=== PATIENT | female | born 1965 | race Caucasian/White ===

== ENCOUNTER 2023-04-30 20:30 | Emergency (ER) | payer OTHER ==
[~2023-04-30] VITALS: Ht 162.6 cm; Wt 63.5 kg
[2023-04-30 21:34] VITALS: BP 115/58; TEMP 98.9; O2SAT 100
[2023-04-30] MEDS ORDERED: AMOX500C2 PO (21:37)
[2023-04-30] MEDS ORDERED: AMOXICILLIN TRIHYDRATE 250 MG CAPSULE ONE (21:42)
[2023-04-30] MEDS: AMOXICILLIN TRIHYDRATE 500 MG CAPSULE PO ONE (21:46)
== END 2023-04-30 21:46 | disposition home or self-care (01) ==
LOC: ER 20:45
DX: H66.91 Otitis media, unspecified, right ear (principal)

== ENCOUNTER 2024-08-28 22:48 | Emergency (ER) | payer MEDICAID ==
[~2024-08-28] VITALS: Ht 160 cm; Wt 52.2 kg
[~2024-08-28 22:48] MED LIST: AMOX500C2 PO
[2024-08-28 23:24] VITALS: BP 111/64; TEMP 98.1; O2SAT 97
[2024-08-28] MEDS ORDERED: IBUPROFEN 600 MG TABLET ONE (23:42)
[2024-08-28] MEDS: IBUPROFEN 600 MG TABLET PO ONE (23:47)
== END 2024-08-29 01:38 | disposition left against medical advice (07) ==
LOC: ER 22:51
DX: S50.811A Abrasion of right forearm, initial encounter (principal); S80.211A Abrasion, right knee, initial encounter; Z88.1 Allergy status to other antibiotic agents; Z60.2 Problems related to living alone; Z79.899 Other long term (current) drug therapy; W19.XXXA Unspecified fall, initial encounter; Y93.89 Activity, other specified; Y92.89 Other specified places as the place of occurrence of the external cause; Y99.8 Other external cause status
CPT/HCPCS: 73090-TC

== ENCOUNTER 2025-02-04 11:39 | Emergency (ER) | payer MEDICAID ==
[~2025-02-04] VITALS: Ht 157.5 cm; Wt 59.9 kg
[2025-02-04 12:51] LABS: INR 1.04 (0.91-1.10)
[2025-02-04 12:52] LABS: PLATELET COUNT (AUTO) 242 K/uL (150-450); RED BLOOD CELL COUNT(AUTO) 4.29 MIL/uL (4.0-5.2); RED CELL DISTRIBUTION WIDTH 14.4 % (11.5-15.0); WHITE BLOOD COUNT (AUTO) 10.9 K/uL (4.3-11.0)
[2025-02-04] MEDS: IV NS 0.9% 1,000 ML BAG IV ONE (12:52)
[2025-02-04 12:55] LABS: ASPARTATE AMINOTRANSFERASE 17 U/L (15-37); CALCIUM, SERUM 8.9 mg/dL (8.5-10.1); CREATININE 0.8 mg/dL (0.6-1.3); SODIUM SERUM 144 mmol/L (136-145); TOTAL PROTEIN, SERUM 7.7 g/dL (6.4-8.2); UREA NITROGEN, BLOOD 16 mg/dL (7-18)
[2025-02-04 12:56] LABS: LACTIC ACID 0.6 mmol/L (0.4-2.0)
[2025-02-04] MEDS ORDERED: IOHEXOL-300 100 ML VIAL IV ONE (13:00)
[2025-02-04] MEDS ORDERED: IV NS 0.9% 250 ML IV ONE (13:01)
[2025-02-04] MEDS: CEFEPIME 1 GM in IV D5W 50 ML IV ONE (13:27)
[2025-02-04] MEDS: VANCOMYCIN 1 GM in IV D5W 250 ML IV ONE (13:50)
[2025-02-04] MEDS ORDERED: CEPH-570 PO (14:25)
[2025-02-04] MEDS ORDERED: DOXY100C2 PO (14:25)
[2025-02-04 15:06] LABS: APPEARANCE,URINE CLEAR (CLEAR); BLOOD, URINE 1+ Ery/uL (NEGATIVE); LEUKOCYTE ESTERASE ,URINE NEGATIVE (NEGATIVE); NITRITE, URINE NEGATIVE (NEGATIVE); UGLUCOSE NEGATIVE (NEGATIVE)
[2025-02-04 15:27] LABS: ADD URINE CULTURE YES; SQUAMOUS EPITHELIAL CELL,UR Few /HPF (None Seen)
[2025-02-04 15:42] VITALS: BP 121/79; TEMP 99.8; O2SAT 100
== END 2025-02-04 15:42 | disposition home or self-care (01) ==
LOC: ER 11:43
DX: K13.0 Diseases of lips (principal); R07.89 Other chest pain; Z88.1 Allergy status to other antibiotic agents
CPT/HCPCS: 99285; 96365; 70487; 71045; 96368; 93005; 84145; 85025; 80048; 87040 ×2; 83605; 80076; 81001; 36415; 84484 ×2; 85730; J3373; J7060; J7030; J7050; A4223; J0692; Q9967; 87086-TC